=== PATIENT | male | born 1990 | race Caucasian/White ===

== ENCOUNTER 2017-04-09 20:27 | Emergency (ER) | payer SELFPAY ==
--- NOTE | 2017-04-09 21:21 | RADIOLOGY REPORT (SQ) ---
EXAM DESCRIPTION: CHEST PA/LAT COMPLETED DATE/TIME: 04/09/2017 9:15 pm REASON FOR STUDY: POSSIBLE PE/ SOB COMPARISON: None. EXAM PARAMETERS: NUMBER OF VIEWS: two views TECHNIQUE: Digital Frontal and Lateral radiographic views of the chest acquired. RADIATION DOSE: NA LIMITATIONS: none FINDINGS: LUNGS AND PLEURA: No opacities, masses or pneumothorax. No pleural effusion. MEDIASTINUM AND HILAR STRUCTURES: No masses or contour abnormalities. HEART AND VASCULAR STRUCTURES: Heart normal size. No evidence for failure. BONES: No acute findings. HARDWARE: None in the chest. OTHER: No other significant finding. IMPRESSION: NO SIGNIFICANT RADIOGRAPHIC FINDING IN THE CHEST. TECHNICAL DOCUMENTATION: JOB ID: [id number] [employer]- All Rights Reserved
[2017-04-09 21:59] LABS: HEMATOCRIT 39.3 % (37.9-51.0); HEMOGLOBIN 13.8 g/dL (13.5-17.0); HGB HCT DIFFERENCE 2.1; MEAN CORPUSCULAR HEMOGLOBIN 28.8 pg (27.0-33.4); MEAN CORPUSCULAR VOLUME 82 fl (80-97); RED BLOOD COUNT 4.78 10^6/uL (4.35-5.55); WHITE BLOOD COUNT 7.9 10^3/uL (4.0-10.5)
[2017-04-09 22:09] LABS: ALANINE AMINOTRANSFERASE 79 U/L (21-72); ALBUMIN 4.4 g/dL (3.5-5.0); ALKALINE PHOSPHATASE 76 U/L (38-126); ANION GAP 11 (5-19); ASPARTATE AMINO TRANSFERASE 29 U/L (17-59); BILIRUBIN,DIRECT 0.4 mg/dL (0.0-0.4); BILIRUBIN,TOTAL 1.3 mg/dL (0.2-1.3); BLOOD UREA NITROGEN 9 mg/dL (7-20); CALCIUM 10.1 mg/dL (8.4-10.2); CARBON DIOXIDE 27 mmol/L (22-30); CHLORIDE 100 mmol/L (98-107); CREATINE KINASE 51 U/L (55-170); CREATININE RESULT 0.86 mg/dL (0.52-1.25); GLUCOSE 105 mg/dL (75-110); POTASSIUM 4.4 mmol/L (3.6-5.0); SODIUM 138.3 mmol/L (137-145); TOTAL PROTEIN 6.9 g/dL (6.3-8.2)
[2017-04-09 22:17] LABS: BAND NEUTROPHILS % (MANUAL) 1 % (3-5); BASOPHILS % (MANUAL) 0 % (0-2); EOSINOPHILS % (MANUAL) 1 % (0-6); LYMPHOCYTES % (MANUAL) 3 % (13-45); RBC MORPHOLOGY COMMENT NORMO-CYTIC/CHROMIC; TOTAL CELLS COUNTED 100; TOXIC GRANULATION SLIGHT; TOXIC VACUOLATION PRESENT
[2017-04-09 22:20] LABS: CREATINE KINASE MB 0.89 ng/mL (<4.55)
[2017-04-09 22:22] LABS: TROPONIN I < 0.012 ng/mL
[2017-04-09 22:40] LABS: APPEARANCE,URINE SLIGHTLY-CLOUDY; BILIRUBIN,URINE NEGATIVE (NEGATIVE); GLUCOSE, URINE NEGATIVE (NEGATIVE); KETONES,URINE NEGATIVE (NEGATIVE); LEUKOCYTE ESTERASE,URINE NEGATIVE (NEGATIVE); NITRITE,URINE NEGATIVE (NEGATIVE); PROTEIN,URINE 30 mg/dL (NEGATIVE); URINE SPECIFIC GRAVITY 1.027; UROBILINOGEN,URINE NEGATIVE mg/dL (<2.0)
--- NOTE | 2017-04-09 22:47 | EKG REPORT ---
SEVERITY:- OTHERWISE NORMAL ECG - SINUS TACHYCARDIA : Confirmed by: Josefina Ibarra 09-Apr-2017 22:46:58
[2017-04-09] MEDS ORDERED: FENTANYL CITRATE INJ/PF 100 MCG/2 ML AMPUL IV ONE (23:11)
[2017-04-09] MEDS ORDERED: NORMAL SALINE 1000 ML 1,000 ML IV ONE (23:11)
--- NOTE | 2017-04-09 23:13 | ER Document Report ---
ED General - General Chief Complaint: Chest Pain Stated Complaint: CHEST PAIN Time Seen by Provider: 04/09/17 22:00 Notes: Patient is a 27-year-old male with a recent partial colectomy secondary to acute diverticulitis 2 weeks ago who presents with acute onset of left-sided chest pain with associated shortness of breath. Patient states that he been feeling well while on vacation in the area when progressive over the course of approximately an hour he developed a stabbing, constant pain to the left side of his chest that is worsened by taking a deep breath. States the pain is so severe does prevent him from taking a deep breath. Nothing improves the symptoms. He denies any history of the same in the past. No history of a DVT or pulmonary embolus. He has not had any hemoptysis. Denies any syncope, fever , cough or sputum production. He denies any abdominal pain or fever. He has not seen his primary care doctor regarding this concern. TRAVEL OUTSIDE OF THE [place] IN LAST 30 DAYS: No Past Medical History - General Information source: Patient - Social History Smoking Status: Never Smoker Frequency of alcohol use: None Drug Abuse: None Lives with: Spouse/Significant other Family History: Reviewed & Not Pertinent Patient has suicidal ideation: No Patient has homicidal ideation: No Renal/ Medical History: Denies: Hx Peritoneal Dialysis Past Surgical History: Reports: Hx Abdominal Surgery - lap bowel resection 03/13 Review of Systems - Review of Systems Notes: Constitutional: Negative for fever. HENT: Negative for sore throat. Eyes: Negative for visual changes. Cardiovascular: Positive for chest pain. Respiratory: Positive for shortness of breath. Gastrointestinal: Negative for abdominal pain, vomiting or diarrhea. Genitourinary: Negative for dysuria. Musculoskeletal: Negative for back pain. Skin: Negative for rash. Neurological: Negative for headaches, weakness or numbness. 10 point ROS negative except as marked above and in HPI. Physical Exam - Vital signs Vitals: Resp Pulse Ox 21 H 96 04/09/17 21:40 04/09/17 21:40 Interpretation: Tachycardic, Tachypneic Notes: PHYSICAL EXAMINATION: GENERAL: Ill in appearance, diaphoretic, tachypneic HEAD: Atraumatic, normocephalic. EYES: Pupils equal round and reactive to light, extraocular movements intact, sclera anicteric, conjunctiva are normal. ENT: nares patent, oropharynx clear without exudates. Moderately dry mucous membranes. NECK: Normal range of motion, supple without lymphadenopathy LUNGS: Short inspiratory phase. Clear breath sounds bilaterally. HEART: Regular tachycardia without murmurs ABDOMEN: Soft, nontender, normoactive bowel sounds. No guarding, no rebound. No masses appreciated. EXTREMITIES: Normal range of motion, no pitting or edema. No cyanosis. NEUROLOGICAL: No focal neurological deficits. Moves all extremities spontaneously and on command. PSYCH: Normal mood, normal affect. SKIN: Warm, Dry, normal turgor, laparoscopic incisional sites on the abdomen are well-healed Course - Re-evaluation Re-evalutation: 04/09/17 23:12 Patient presents in respiratory distress, tachycardic, initial vitals showing tachypnea with respiratory rate of 36-40, tachycardia 120s-130s, requiring 2 L of nasal cannula. Patient did have surgery on 24 March, partial colonic resection for an acute diverticulitis. He is acutely ill in appearance. I am very concerned the patient has an acute pulmonary embolus. Chest x-ray is clear without evidence of an acute pneumonia or pneumothorax. Will obtain a stat CT of the chest. 04/09/17 23:49 CTA of the chest is clear. No evidence of acute pulmonary emboli. I did go to the bedside and perform is at bedside echocardiogram. There is no evidence of a pericardial effusion. Patient remains tachycardic, mildly tachypneic, continues to be somewhat pale and diaphoretic. At this point the exact etiology of his presentation is unclear but I remain concerned given his vitals and appearance. His laboratories do not show any evidence of an acute CA. EKG without ischemic changes. CT is negative for any evidence of an aortic dissection or an acute pulmonary embolus. He has [place] no abdominal tenderness to suggest an acute bowel perforation in the context of his recent surgery. Patient has however disclose at this point that he has not had a proper bowel movement in over a week. This would be an atypical presentation for severe constipation but it may explain some of his sensation of right lower chest wall discomfort. Alternatively musculoskeletal irritation could trigger the pain but again I would be surprised if this were to be causing his vital sign abnormalities and overall appearance. Will obtain a KUB of the abdomen, provide analgesia, fluids and continue to reassess frequently. 04/10/17 01:13 Patient states he overall feels much better although continues to have pain over the left chest with movement. His resting heart rate is down to 105 bpm although when he gets up and moves around in the bed it does rise back to the 120s. Urinalysis does show findings consistent with dehydration. Will provide additional fluid bolus, continue to monitor. 04/10/17 02:25 Patient's heart rate is improved 105 resting. He states his symptoms are overall much improved. At this time the exact etiology of patient's presentation remains unclear to me but I do not suspect any acute life- threatening pathology at this time based on his reassuring evaluation. I have provided the patient with my personal cell phone number and instructed him to please contact me for any additional concerns. I have also provided very clear return precautions. Both the patient and his at the bedside verbalized understanding that we do not have a definitive diagnosis for his presentation and that he needs to return to the emergency department immediately should he have any new or worsening symptoms. - Vital Signs Vital signs: Temp Pulse Resp BP Pulse Ox 99.6 F 35 H 121/75 95 04/09/17 23:06 04/10/17 00:01 04/10/17 00:01 04/10/17 00:01 - Laboratory Result Diagrams: 04/09/17 21:35 04/09/17 21:35 Laboratory results interpreted by me: 04/09/17 04/09/17 04/09/17 21:35 21:35 22:24 Seg Neuts % (Manual) 92 H Band Neutrophils % 1 L Lymphocytes % (Manual) 3 L Abs Lymphs (Manual) 0.2 L ALT 79 H Creatine Kinase 51 L Urine Protein 30 H - Diagnostic Test Radiology reviewed: Image reviewed, Reports reviewed Radiology results interpreted by me: 04/10/17 02:26 Chest x-ray: No acute infiltrate or pneumothorax - EKG Interpretation by Me Additional EKG results interpreted by me: 04/10/17 02:26 Sinus tachycardia. Rate 116. No ST elevations or depressions. QTC is 423. Critical Care Note - Critical Care Note Total time excluding time spent on procedures (mins): 36 Comments: Critical care time spent obtaining history from patient or surrogate, discussions with consultants, development of treatment plan with patient or surrogate, evaluation of patient's response to treatment, examination of patient , ordering and performing treatments and interventions, ordering and review of laboratory studies, re-evaluation of patient's condition, ordering and review of radiographic studies and review of old charts Discharge - Discharge Clinical Impression: Chest wall pain, Tachycardia, Pleuritic pain Condition: Stable Disposition: HOME, SELF-CARE Additional Instructions: The exact cause of your symptoms is unclear today. However your labs, CT scan of the chest, and evaluation are otherwise unremarkable. It is possible that your symptoms are due to irritation of the muscles in your chest wall although this is an unusual presentation for this diagnosis. Therefore, I asked that you be very cautious at home and monitor for any signs of a possibly more worrisome diagnosis including worsening of your pain, increased shortness of breath, vomiting or coughing blood, fever of greater than 101F, abdominal pain , confusion, or any other symptoms that are worrisome to you. Please also feel free to contact me for any additional concerns or questions you have: [phone]
--- NOTE | 2017-04-09 23:34 | RADIOLOGY REPORT (SQ) ---
EXAM DESCRIPTION: CTA CHEST COMPLETED DATE/TIME: 04/09/2017 11:21 pm REASON FOR STUDY: eval pe: SURGERY 2 WKS AGO. C/O CHEST PAIN, DIFFICULTY BREATHING. COMPARISON: None. TECHNIQUE: CT scan of the chest performed using helical scanning technique with dynamic intravenous contrast injection. Images reviewed with lung, soft tissue and bone windows. Reconstructed coronal and sagittal MPR images reviewed. Additional 3 dimensional post-processing performed to develop Maximal Intensity Projection images (NV P). All images stored on PACS. All CT scanners at this facility use dose modulation, iterative reconstruction, and/or weight based d osing when appropriate to reduce radiation dose to as low as reasonably achievable (ALARA). [facility]: Dose Right [facility]: CareDose [facility]: Dose Right [facility]: Teradose 4D [facility]: Ravel Law CONTRAST TYPE AND DOSE: contrast/concentration: Isovue 370.00 mg/ml; Total Contrast Delivered: 98.0 ml; Total Saline Delivered: 40.0 ml Contrast bolus optimized for the pulmonary arteries. Not diagnostic for the aorta. RENAL FUNCTION: Creatinine 0.86 RADIATION DOSE: Up-to-date CT equipment and radiation dose reduction techniques were employed. CTDIv ol: 24.0 mGy. DLP: 729 mGy-cm. . LIMITATIONS: None. FINDINGS: LUNGS AND PLEURA: No masses, infiltrates, pneumothorax. No pleural effusions, calcificati ons. AORTA AND GREAT VESSELS: No aneurysm. Contrast bolus not optimized for the aorta. HEART: No pericardial effusion. No significant coronary artery calcifications. PULMONARY ARTERIES: No emboli visualized in the main pulmonary arteries or the segmental branches. HILAR AND MEDIASTINAL STRUCTURES: No identified masses or abnormal nodes. HARDWARE: None in the chest. UPPER ABDOMEN: No significant findings. Limited exam. THYROID AND OTHER SOFT TISSUES: No masses. No adenopathy. BONES: No acute or significant finding. 3D MIPS: Confirm above findings. OTHER: No other significant finding. IMPRESSION: NORMAL CTA OF THE CHEST. NO PULMONARY EMBOLI. COMMENT: Quality ID # [id number]: Final reports with documentation of one or more dose reduction techniques (e.g., Automated exposure control, adjustment of the mA and/or kV according to patient size, use of iterative reconstruction technique) TECHNICAL DOCUMENTATION: JOB ID: [id number] [employer]- All Rights Reserved
[2017-04-09] MEDS ORDERED: KETOROLAC TROMETHAMINE INJ/PF 30 MG/1 ML SDV IV ONE (23:37)
[2017-04-09] MEDS ORDERED: LIDOCAINE 5% (700 MG) TRANSDERMAL ADH..PATCH TP ONE (23:37)
[2017-04-09] MEDS ORDERED: METOCLOPRAMIDE HCL ORAL SOLN 10 MG/10 ML UDCUP PO ONE (23:49)
[2017-04-09] MEDS ORDERED: LIDOCAINE 2% VISCOUS SOLN 20 ML UDCUP PO ONE (23:49)
[2017-04-09] MEDS ORDERED: MAG HYDROX/AL HYDROX/SIMETH SUSP 30 ML UDCUP PO ONE (23:49)
--- NOTE | 2017-04-10 00:49 | RADIOLOGY REPORT (SQ) ---
EXAM DESCRIPTION: KUB/ABDOMEN (SINGLE VIEW) COMPLETED DATE/TIME: 04/10/2017 12:08 am REASON FOR STUDY: eval stool retention COMPARISON: None. NUMBER OF VIEWS: One view. TECHNIQUE: Supine radiographic image of the abdomen acquired. LIMITATIONS: None. FINDINGS: BOWEL GAS PATTERN: Normal bowel gas pattern. No dilated loops. No significant stool reten tion. CALCIFICATIONS: No suspicious calcifications. SOFT TISSUES: No gross mass or suggestion of organomegaly. HARDWARE: None in the abdomen. BONES: No acute fracture. No worrisome bone lesions. OTHER: Retained contrast in the urinary bladder and renal collecting system. IMPRESSION: No acute findings. TECHNICAL DOCUMENTATION: JOB ID: [id number] [employer]- All Rights Reserved
[2017-04-10] MEDS ORDERED: NORMAL SALINE 1000 ML 1,000 ML IV ONE (01:12)
[2017-04-10] MEDS ORDERED: ACETAMINOPHEN 325 MG TABLET PO ONE (01:13)
[2017-04-10 03:17] VITALS: BP 110/69
--- NOTE | 2017-04-10 10:14 | EKG REPORT ---
SEVERITY:- OTHERWISE NORMAL ECG - SINUS TACHYCARDIA : Confirmed by: Josefina Ibarra 10-Apr-2017 10:14:14
== END 2017-04-10 03:21 | disposition home or self-care (01) ==
LOC: ER 20:27
DX: R07.89 Other chest pain (principal); R07.81 Pleurodynia; R00.0 Tachycardia, unspecified; R07.9 Chest pain, unspecified; R06.02 Shortness of breath; Z98.890 Other specified postprocedural states
CPT/HCPCS: 93005; 99291; 96361; 96374; 96375; 36415; 82553; 82550; 85025; 80053; 81001; 84484; 71020; 74000; 71275; 93010; J3010; J3490; J1885; J7030 ×2